=== PATIENT | male | born 1965 | race Caucasian/White ===

== ENCOUNTER → 2020-08-11 21:40 | Outpatient (CLI) | payer MEDICAID, SELFPAY ==
[2020-08-11 14:59] VITALS: BMI 22.8
[2020-08-11 21:58] LABS: Absolute Lymphocyte Count 1.21 X10^3/uL (0.83-4.51); Basophil# 0.04 X10^3/uL; Eosinophil# 0.05 X10^3/uL; Eosinophils% 1.3 % (0-5); Hematocrit 44.9 % (40-54); Hemoglobin 15.6 g/dL (13.0-16.5); Lymphocyte # 1.21 X10^3/ul (4.0); Lymphocyte % 31.3 % (19-41); Mean Corp Hgb Conc 34.7 g/dL (32-36); Mean Corpuscular Hgb 35.5 pg (27.0-32.0); Mean Platelet Vol. 10.7 fl (6.2-12.0); Monocyte# 0.54 X10^3/uL; NRBC Flagged by Analyzer 0 % (0-5); Neutrophil # 2.02 X10^3/uL (2.7-7.7); Neutrophil % 52.1 % (47-70); Platelet Count 138 K/mm3 (150-450); RBC Distribution Width CV 13.6 % (11.6-14.6); RBC Distribution Width SD 51.4 fl (35.1-43.9); White Blood Count 3.9 K/mm3 (4.4-11.0)
[2020-08-11 22:13] LABS: ALB/GLOB Ratio 0.9 RATIO (0.9-2.4); AST(SGOT) 48 U/L (15-37); Alanine Aminotransfer ALT/SGPT 56 U/L (16-61); Albumin, Serum 3.8 g/dL (3.2-5.0); Alkaline Phosphatase 94 U/L (45-117); Anion Gap 3 (5-15); BUN 17 mg/dL (7-18); BUN/Creat Ratio 15.3 RATIO (10-20); Calcium,Total 9.4 mg/dL (8.5-10.1); Chloride 107 mmol/L (98-107); Cholesterol 170 mg/dL (200); Creatinine, Serum 1.11 mg/dL (0.70-1.30); EST Glomerular Filtration Rate 73 mL/min (>60); Est Glom Filt Rate - Afr Amer 89 mL/min (>60); Globulin 4.1 g/dL (2.2-4.2); Glucose 90 mg/dL (74-106); High Density Lipoprotein 89 mg/dL; Potassium 4.2 mmol/L (3.5-5.1); Protein, Total 7.9 g/dL (6.4-8.2); Sodium Level 138 mmol/L (136-145); Triglycerides 56 mg/dL; Very Low Density Lipoprotein 11 mg/dL (5-40)
[2020-08-15 16:08] LABS: ANTINUCLEAR ANTIBODIES DIRECT Positive (Negative); Anti-Centromere B Ab <0.2 AI (0.0-0.9); Anti-Chromatin 0.7 AI (0.0-0.9); Anti-Jo <0.2 AI (0.0-0.9); Anti-Scleroderma-70 AB <0.2 AI (0.0-0.9); Endomysial Antibody IgA Negative (Negative); SJOGREN'S Anti-SS-A test < 0.2 AI (0.0-0.9); SJOGREN'S Anti-SS-B test 0.7 AI (0.0-0.9)
[2020-08-15 16:16] LABS: Anti-dsDNA Ab 4 IU/mL (0-9); Deamidated Gliadin IgA 6 units (0-19); Deamidated Gliadin IgG 2 units (0-19); Immunoglobulin A 403 mg/dL (90-386); t-Transglutaminase IgA <2 U/mL (0-3)
== END ==
LOC: OLS.AHF 21:41 → LABSPEC 08-12 07:50
PROVIDERS: Visit Provider Nurse Practitioner
DX: F41.9 Anxiety disorder, unspecified (principal); M79.661 Pain in right lower leg; M79.662 Pain in left lower leg; E78.5 Hyperlipidemia, unspecified; R19.7 Diarrhea, unspecified
CPT/HCPCS: 80053; 80061; 82784; 83516; 85025; 86038; 86225; 86235; 86255

== ENCOUNTER 2021-08-28 21:16 | Outpatient (CLI) | payer MEDICAID, SELFPAY ==
[2021-08-28 21:32] LABS: Absolute Lymphocyte Count 1.87 X10^3/uL (0.83-4.51); Absolute Neutrophil Count 2.9 X10^3/uL (2.0-7.7); Basophil# 0.06 X10^3/uL; Basophil% 1.1 % (0-1); Eosinophil# 0.22 X10^3/uL; Eosinophils% 3.9 % (0-5); Hematocrit 47.1 % (40-54); Lymphocyte # 1.87 X10^3/ul (0.83-4.51); Mean Corp Hgb Conc 36.1 g/dL (32-36); Mean Corpuscular Hgb 36.2 pg (27.0-32.0); Mean Corpuscular Volume 100.4 fL (80-94); Mean Platelet Vol. 10.7 fl (6.2-12.0); Monocyte# 0.62 X10^3/uL; Monocyte% 10.9 % (0-10); NRBC Flagged by Analyzer 0 % (0-5); Neutrophil # 2.88 X10^3/uL (2.7-7.7); Neutrophil % 50.7 % (47-70); Platelet Count 204 K/mm3 (150-450); RBC Distribution Width CV 13.5 % (11.6-14.6); RBC Distribution Width SD 50.2 fl (35.1-43.9); Red Blood Count 4.69 M/mm3 (4.6-6.2); White Blood Count 5.7 K/mm3 (4.4-11.0)
[2021-08-28 21:46] LABS: ALB/GLOB Ratio 0.9 RATIO (0.9-2.4); AST(SGOT) 51 U/L (15-37); Alanine Aminotransfer ALT/SGPT 58 U/L (16-61); Albumin, Serum 3.8 g/dL (3.2-5.0); Alkaline Phosphatase 78 U/L (45-117); Anion Gap 6 (5-15); BUN 13 mg/dL (7-18); BUN/Creat Ratio 13.1 RATIO (10-20); Calcium,Total 9.6 mg/dL (8.5-10.1); Chloride 107 mmol/L (98-107); Cholesterol 149 mg/dL (200); EST Glomerular Filtration Rate 83 mL/min (>60); Est Glom Filt Rate - Afr Amer 100 mL/min (>60); Globulin 4.2 g/dL (2.2-4.2); Glucose 81 mg/dL (74-106); High Density Lipoprotein 61 mg/dL; PSA,Total - Annual Screen 3.35 ng/mL (0.00-4.00); Potassium 4.3 mmol/L (3.5-5.1); Sodium Level 139 mmol/L (136-145); Thyroid Stim Hormone (TSH) 2.03 uIU/mL (0.358-3.74); Triglycerides 77 mg/dL; Very Low Density Lipoprotein 15 mg/dL (5-40)
== END 2021-08-28 23:59 | disposition home or self-care (01) ==
PROVIDERS: Visit Provider Nurse Practitioner
DX: R35.0 Frequency of micturition (principal); F33.2 Major depressive disorder, recurrent severe without psychotic features; F41.1 Generalized anxiety disorder
CPT/HCPCS: 84153; 80053; 80061; 84443; 85025; G0103

== ENCOUNTER → 2022-10-30 | Outpatient (CLI) | payer MEDICAID, SELFPAY ==
[2022-10-30 21:50] LABS: Absolute Lymphocyte Count 1.76 X10^3/uL (0.83-4.51); Absolute Neutrophil Count 2.6 X10^3/uL (2.0-7.7); Basophil# 0.06 X10^3/uL; Basophil% 1.2 % (0-1); Eosinophil# 0.09 X10^3/uL; Eosinophils% 1.8 % (0-5); Hematocrit 46.6 % (40-54); Hemoglobin 16.6 g/dL (13.0-16.5); Lymphocyte # 1.76 X10^3/ul (0.83-4.51); Lymphocyte % 35.3 % (19-41); Mean Corp Hgb Conc 35.6 g/dL (32-36); Mean Corpuscular Hgb 34.7 pg (27.0-32.0); Mean Corpuscular Volume 97.3 fL (80-94); Mean Platelet Vol. 10.8 fl (6.2-12.0); Monocyte# 0.47 X10^3/uL; Monocyte% 9.4 % (0-10); NRBC Flagged by Analyzer 0 % (0-5); Neutrophil % 52.1 % (47-70); Platelet Count 181 K/mm3 (150-450); RBC Distribution Width CV 13.1 % (11.6-14.6); RBC Distribution Width SD 47.3 fl (35.1-43.9); Red Blood Count 4.79 M/mm3 (4.6-6.2)
[2022-10-30 22:16] LABS: ALB/GLOB Ratio 0.9 RATIO (0.9-2.4); AST(SGOT) 31 U/L (15-37); Alanine Aminotransfer ALT/SGPT 28 U/L (16-61); Albumin, Serum 3.8 g/dL (3.2-5.0); Alkaline Phosphatase 95 U/L (45-117); Anion Gap 4 (5-15); BUN 14 mg/dL (7-18); BUN/Creat Ratio 13.1 RATIO (10-20); Calcium,Total 9.7 mg/dL (8.5-10.1); Chloride 109 mmol/L (98-107); Cholesterol 142 mg/dL (200); Creatinine, Serum 1.07 mg/dL (0.70-1.30); EST Glomerular Filtration Rate 76 mL/min (>60); Est Glom Filt Rate - Afr Amer 92 mL/min (>60); Globulin 4.1 g/dL (2.2-4.2); Glucose 114 mg/dL (74-106); High Density Lipoprotein 71 mg/dL; PSA,Total - Annual Screen 2.07 ng/mL (0.00-4.00); Potassium 4.1 mmol/L (3.5-5.1); Protein, Total 7.9 g/dL (6.4-8.2); Sodium Level 142 mmol/L (136-145); Triglycerides 63 mg/dL; Very Low Density Lipoprotein 13 mg/dL (5-40)
== END | disposition home or self-care (01) ==
PROVIDERS: Visit Provider Nurse Practitioner
DX: G47.00 Insomnia, unspecified (principal); F32.9 Major depressive disorder, single episode, unspecified; F41.9 Anxiety disorder, unspecified; R35.0 Frequency of micturition
CPT/HCPCS: 84153; 80053; 80061; 85025; G0103

== ENCOUNTER → 2023-12-11 | Outpatient (CLI) | payer SELFPAY ==
[2023-12-11 22:08] LABS: Absolute Lymphocyte Count 1.48 X10^3/uL (0.83-4.51); Basophil# 0.04 X10^3/uL; Eosinophil# 0.04 X10^3/uL; Hematocrit 48.8 % (40-54); Lymphocyte # 1.48 X10^3/ul (0.83-4.51); Lymphocyte % 36.8 % (19-41); Mean Corp Hgb Conc 34.8 g/dL (32-36); Mean Corpuscular Hgb 34.1 pg (27.0-32.0); Mean Platelet Vol. 11.1 fl (6.2-12.0); Monocyte# 0.47 X10^3/uL; Monocyte% 11.7 % (0-10); NRBC Flagged by Analyzer 0 % (0-5); Neutrophil # 1.98 X10^3/uL (2.7-7.7); Neutrophil % 49.3 % (47-70); Platelet Count 173 K/mm3 (150-450); RBC Distribution Width CV 13.7 % (11.6-14.6); RBC Distribution Width SD 49.6 fl (35.1-43.9); Red Blood Count 4.98 M/mm3 (4.6-6.2)
[2023-12-11 22:30] LABS: ALB/GLOB Ratio 0.9 RATIO (0.9-2.4); AST(SGOT) 66 U/L (15-37); Alanine Aminotransfer ALT/SGPT 73 U/L (16-61); Albumin, Serum 3.9 g/dL (3.2-5.0); Alkaline Phosphatase 90 U/L (45-117); Anion Gap 5 (5-15); BUN 10 mg/dL (7-18); BUN/Creat Ratio 8.8 RATIO (10-20); Calcium,Total 9.6 mg/dL (8.5-10.1); Chloride 105 mmol/L (98-107); Cholesterol 144 mg/dL (200); Creatinine, Serum 1.13 mg/dL (0.70-1.30); EST Glomerular Filtration Rate 71 mL/min (>60); Est Glom Filt Rate - Afr Amer 86 mL/min (>60); Globulin 4.4 g/dL (2.2-4.2); Glucose 88 mg/dL (74-106); High Density Lipoprotein 67 mg/dL; PSA,Total- Diagnostic 2.73 ng/mL (0.0-4.0); Potassium 4.4 mmol/L (3.5-5.1); Protein, Total 8.3 g/dL (6.4-8.2); Sodium Level 137 mmol/L (136-145); Triglycerides 56 mg/dL; Very Low Density Lipoprotein 11 mg/dL (5-40)
== END | disposition home or self-care (01) ==
PROVIDERS: PCP Nurse Practitioner; Referring Provider Nurse Practitioner; Visit Provider Nurse Practitioner
DX: R35.0 Frequency of micturition (principal); F33.2 Major depressive disorder, recurrent severe without psychotic features; R10.13 Epigastric pain; G47.01 Insomnia due to medical condition; F41.1 Generalized anxiety disorder
CPT/HCPCS: 80053; 80061; 84153; 85025